=== PATIENT | male | born 2000 | race Caucasian/White ===

== ENCOUNTER 2022-12-26 08:32 | Outpatient (CLI) | payer OTHER | END 2022-12-26 08:34 | disposition home or self-care (01) | LOC: LAB 08:32 | DX: I11.9 Hypertensive heart disease without heart failure (principal); R94.5 Abnormal results of liver function studies ==

== ENCOUNTER 2023-04-03 08:20 | Outpatient (CLI) | payer OTHER | END 2023-04-03 08:24 | disposition home or self-care (01) | LOC: RAD 08:20 | PROVIDERS: ATTEND Legal Medicine | DX: J30.1 Allergic rhinitis due to pollen (principal); I10 Essential (primary) hypertension ==

== ENCOUNTER 2023-08-14 09:10 | Outpatient (CLI) | payer OTHER ==
[2023-08-14 11:54] LABS: ERYTHROCYTE SEDIMENTATION RATE 1 mm/hr
[2023-08-14 12:16] LABS: URIC ACID 6.2 mg/dL (3.5-8.5)
[2023-08-14 12:35] LABS: ALBUMIN 4.5 gm/dL (3.4-5.0); BILIRUBIN TOTAL 0.74 mg/dL (0.3-1.2); CALCIUM 10.4 mg/dL (8.5-10.1); CHOL HDL RATIO 3.1 (0-5.0); CREATININE SERUM 0.89 mg/dL (0.70-1.30); GFR 105.93; GLOBULINA 2.7 G/DL (2.4-3.5); POTASSIUM 4.08 mEq/L (3.5-5.1); T4 TOTAL 9.17 UG/DL (4.5-12.1); TOTAL PROTEIN 7.2 gm/dL (6.4-8.2); TSH 0.889 uIU/mL (0.358-3.74)
[2023-08-14 12:50] LABS: HEMATOCRIT 49.5 % (39.0-48.0); HEMOGLOBIN 17.8 g/dL (13-16.00); MEAN CELL VOLUME 91.7 fL (80.0-100.00); MEAN CORPUSCULAR HEMOGLOBIN 32.9 pg (27.00-32.0); MEAN CORPUSCULAR HGB CONC 35.9 g/dl (32.0-36.0); PLATELET COUNT 206 K/uL (150-450); RED CELL DISTRIBUTION WIDTH 12.7 % (11.5-14.5)
== END 2023-08-14 09:14 | disposition home or self-care (01) ==
LOC: LAB 09:10
PROVIDERS: ATTEND Internal Medicine
DX: E11.9 Type 2 diabetes mellitus without complications (principal); D64.9 Anemia, unspecified; R94.5 Abnormal results of liver function studies; E78.2 Mixed hyperlipidemia; E03.9 Hypothyroidism, unspecified; M10.9 Gout, unspecified; M32.9 Systemic lupus erythematosus, unspecified

== ENCOUNTER 2023-08-14 09:39 | Outpatient (CLI) | payer OTHER | END 2023-08-14 09:46 | disposition home or self-care (01) | LOC: RAD 09:39 | PROVIDERS: ATTEND Internal Medicine | DX: M79.641 Pain in right hand (principal) ==

== ENCOUNTER 2024-12-02 07:39 | Outpatient (CLI) | payer OTHER ==
[2024-12-02 08:46] LABS: BASO % 0.2 % (0.1-1.2); EOS # 0.09 (0.04-0.54); EOS % 2.1 % (0.7-7.0); HEMATOCRIT 41.4 % (40.1-51.0); HEMOGLOBIN 14.8 g/dL (13.7-17.5); LYMPH # 1.68 (1.18-3.74); LYMPH % 38.6 % (19.3-53.1); MEAN CORPUSCULAR HEMOGLOBIN 32.2 pg (25.6-32.2); MONO # 0.33 (0.24-0.82); MONO % 7.6 % (4.7-12.5); NEUT # 2.23 (1.56-6.13); NEUT % 51.3 % (34.0-71.1); PLATELET COUNT 181 K/uL (163-369); RED BLOOD COUNT 4.59 M/uL (4.63-6.08); RED CELL DISTRIBUTION WIDTH 11.8 % (11.6-14.4)
[2024-12-02 08:47] LABS: ERYTHROCYTE SEDIMENTATION RATE < 1 mm/hr (0-15)
[2024-12-02 09:07] LABS: URINE APPEARANCE Clear; URINE BILIRRUBIN Negative (NEGATIVE); URINE BLOOD Negative; URINE COLOR Yellow; URINE GLUCOSE Negative (NEGATIVE); URINE KETONE Negative (NEGATIVE); URINE LEUKOCYTE Negative; URINE NITRATE Negative; URINE PROTEIN Negative (NEGATIVE); URINE UROBILINOGEN 0.2 E.U./dl
[2024-12-02 09:14] LABS: URINE BACTERIA 4.8 uL (0.0-1933)
[2024-12-02 09:28] LABS: URINE EPITHELIAL CELLS 0.3 uL (0.0-38.8); URINE RBC 0.5 uL (0.0-20.8); URINE WBC 0.6 uL (0.0-23.2)
[2024-12-02 09:30] LABS: ALBUMIN 3.8 gm/dL (3.4-5.0); BILIRUBIN TOTAL 0.53 mg/dL (0.3-1.2); CALCIUM 9.3 mg/dL (8.5-10.1); CREATININE SERUM 1.04 mg/dL (0.70-1.30); GFR 87.74; GLOBULINA 2.7 G/DL (2.4-3.5); POTASSIUM 4.22 mEq/L (3.5-5.1); TOTAL PROTEIN 6.5 gm/dL (6.4-8.2)
[2024-12-02 09:32] LABS: T4 TOTAL 9.27 UG/DL (4.5-12.1); TSH 1.9 uIU/mL (0.358-3.74)
== END 2024-12-02 07:44 | disposition home or self-care (01) ==
LOC: LAB 07:39
PROVIDERS: ATTEND Internal Medicine
DX: I11.9 Hypertensive heart disease without heart failure (principal); E78.2 Mixed hyperlipidemia; E03.9 Hypothyroidism, unspecified; M06.4 Inflammatory polyarthropathy; D64.9 Anemia, unspecified; N39.0 Urinary tract infection, site not specified; E55.9 Vitamin D deficiency, unspecified

== ENCOUNTER 2024-12-02 08:29 | Outpatient (CLI) | payer OTHER | END 2024-12-02 08:32 | disposition home or self-care (01) | LOC: RAD 08:29 | PROVIDERS: ATTEND Internal Medicine | DX: M25.511 Pain in right shoulder (principal); M25.562 Pain in left knee ==